=== PATIENT | female | born 1985 | race Caucasian/White ===

== ENCOUNTER 2018-01-02 17:51 | Inpatient (IN) ==
[2018-01-02] MEDS ORDERED: Sodium Chlor 0.9% Inj 500 ML IV.SIG PRN (18:34)
[2018-01-02] MEDS ORDERED: fentaNYL Citrate Inj 100 MCG/2 ML Ampul IV.PUSH PRN ×2 (18:34)
[2018-01-02] MEDS ORDERED: Oxytocin 30 Units/500ml Premix 30 UNITS/500 ML BAG IV.SIG ONE (18:34)
[2018-01-02] MEDS ORDERED: Naloxone Inj 0.4 MG/ML Vial IV.PUSH PRN (18:34)
[2018-01-02] MEDS ORDERED: Sod Chloride 0.9% Inj 1,000 ML IV.CONT PRN (18:34)
[2018-01-02] MEDS ORDERED: Oxytocin 30 Units/500ml Premix 30 UNITS/500 ML BAG IV.CONT PRN (18:35)
--- NOTE | 2018-01-02 18:41 | ED ---
History of Present Illness Primary Care Physician: Lewis Park Chief Complaint: Complaints of leakage of fluid History of Present Illness: 32-year-old at 40 weeks 4 days gestation complains of leakage of fluid this a.m. care with Dr. Park uneventful to date. History of Masha's with adjustment in meds throughout the . GBS negative Weeks Gestation:: 40 Para: 0 : 2 - Inpatient Certification I certify that the inpatient services were ordered in accordance with Medicare regulations governing the order. This includes certification that hospital inpatient services are reasonable and necessary and in the case of services not specified as inpatient-only under 42 CFR 419.22(n), that they are appropriately provided as inpatient services in accordance to with the 2-midnight benchmark under 43 CFR 412.3(e) Estimated Total Length of Stay (Days): 2 Plans for Post Hospital Care: Home Review of Systems All other systems reviewed negative except as stated in HPI PMFSH - History History Provided By: Patient - Medical History Medical History: Medical History (Last Updated 01/02/18 @ 18:38 by Aida Sorto MD) Masha's thyroiditis - Surgical History Surgical History: Surgical History (Last Updated 01/02/18 @ 18:38 by Aida Sorto MD) History of incision and drainage Medications and Allergies Allergies Allergy/AdvReac Type Severity Reaction Status Date / Time ciprofloxacin [From Cipro] Allergy Shakiness Verified 09/21/17 19:03 Latex, Natural Rubber Allergy Hives Verified 09/21/17 19:03 Exam Narrative: GENERAL: Well-nourished, well-developed patient. SKIN: Warm and dry. HEAD: Normocephalic and atraumatic. EYES: No scleral icterus. No injection or drainage. ENT: No nasal drainage noted. Mucous membranes pink. Airway patent. NECK: Supple, trachea midline. No JVD. CARDIOVASCULAR: Regular rate and rhythm without murmurs, gallops, or rubs. RESPIRATORY: Breath sounds equal bilaterally. No accessory muscle use. BREASTS: Bilateral exam showed no masses , no retractions, no nipple discharge. ABDOMEN/GI: Abdomen soft, non-tender, bowel sounds present, no rebound, no guarding Gravid to 40 weeks size Fundal Height: Consistent with gestational age GENITOURINARY: External Genitalia: intact and normal in appearance BUS glands: Unremarkable Cervix: Soft Dilatation: 1 Effacement: 90 Station: -2 -3 Presentation: Vertex Membranes: Grossly ruptured clear fluid Uterine Contractions: Absent FHT's: Category: 1 EXTREMITIES: No cyanosis or edema. BACK: Nontender without obvious deformity. No CVA tenderness. NEUROLOGICAL: Awake and alert. Motor and sensory grossly within normal limits. Normal speech. Assessment and Plan - Diagnosis (1) 40 weeks gestation of Code(s): Z3A.40 - 40 weeks gestation of Status: Acute (2) Leakage, amniotic fluid Code(s): O42.90 - Premature rupture of membranes, unspecified as to length of time between rupture and onset of labor, unspecified weeks of gestation Status : Acute - Plan Discussed with Dr. Park plan admit and start oxytocin. Patient aware plan of care Discharge Plan - Discharge Disposition Patient Disposition: 30 Still Patient - Physicians Team ED Provider: Aida Sorto Primary Care Provider: NOT REQUIRED,
[2018-01-02] MEDS ORDERED: Citric Acid/Sodium Citrate Liq 30 ML UDC PO SCH (18:45)
[2018-01-02 20:04] LABS: Baso % (Auto) 0.2 % (0.0-2.0); Bilirubin,Urine Negative (Negative); Clarity,Urine Hazy (Clear); Color,Urine Yellow (Yellw/Straw); Eos # (Auto) 0.1 th/mm3 (0.0-0.4); Eos % (Auto) 0.8 % (0.0-4.0); Glucose,Urine (UA) Negative (Negative); Hematocrit 30.2 % (35.0-46.0); Hemoglobin 10.2 gm/dL (11.6-15.3); Leukocyte Esterase,Urine Negative (Negative); Lymph # (Auto) 1.9 th/mm3 (1.0-4.8); Lymph % (Auto) 16.9 % (9.0-44.0); Mean Corpuscular HGB Conc 33.8 % (32.0-36.0); Mean Corpuscular Hemoglobin 27.7 pg (27.0-34.0); Mean Corpuscular Volume 81.8 fL (80.0-100.0); Mean Platelet Volume 9.2 fL (7.0-11.0); Mono # (Auto) 0.8 th/mm3 (0.0-0.9); Mono % (Auto) 6.7 % (0.0-8.0); Neut # (Auto) 8.5 th/mm3 (1.8-7.7); Neut % (Auto) 75.4 % (16.0-70.0); Nitrite,Urine Negative (Negative); Platelet Count 181 th/mm3 (150-450); Specific Gravity,Urine 1.008 (1.002-1.035); Squamous Epithelial Cell,Urine <1 /hpf (0-5); White Blood Count 11.2 th/mm3 (4.0-11.0)
[2018-01-02 20:09] LABS: Amphetamine Urine With Conf Neg (Neg); Benzodiazepine Urine With Conf Neg (Neg)
[2018-01-03] MEDS ORDERED: fentaNYL 2MCG-Bupiv 0.125% Epi 150 ML EPIDURAL ONE (00:34)
[2018-01-03] MEDS ORDERED: Lidocaaine 1.5%/Epinephrine 1:200,000 PF Inj 5 ML Amp ONE (00:37)
[2018-01-03] MEDS ORDERED: Lidocaine PF 1% Inj 5 ML Vial ONE (00:38)
[2018-01-03] MEDS ORDERED: fentaNYL Citrate Inj 100 MCG/2 ML Ampul EPIDURAL ONE (01:29)
[2018-01-03] MEDS ORDERED: fentaNYL 2MCG-Bupiv 0.125% Epi 150 ML EPIDURAL PRN (01:29)
[2018-01-03] MEDS ORDERED: Naloxone Inj 0.4 MG/ML Vial IV.PUSH PRN (06:30)
[2018-01-03] MEDS ORDERED: Oxytocin 30 Units/500ml Premix 30 UNITS/500 ML BAG IV.CONT PRN (06:30)
[2018-01-03] MEDS ORDERED: Zolpidem Tartrate 5 MG Tablet PO PRN (06:30)
[2018-01-03] MEDS ORDERED: Acetaminophen 325 MG Tablet PO PRN (06:30)
[2018-01-03] MEDS ORDERED: Witch Hazel 50%/Glyderin 12.5% 40 Pad Jar RECTAL PRN (06:30)
[2018-01-03] MEDS ORDERED: Bisacodyl 10 MG Supp RECTAL PRN (06:30)
[2018-01-03] MEDS ORDERED: Benzocaine 20% Top Spray 60 ML Can TOPICAL PRN (06:30)
--- NOTE | 2018-01-03 06:33 | P.OBDELI ---
Weeks Gestation: 40 Patient Started Active Labor: Yes (16:30) Active Labor Start Date: 01/02/18 Active Labor Start Time: 16:30 Medical Induction of Labor: No Artificial Rupture of Membrane: No Anesthesia: Epidural Episiotomy: none Vaginal Delivery: Normal, Spontaneous Presentation: Occiput anterior Nuchal Cord: None Delayed Cord Clamping (45 sec): Yes Laceration: Vaginal, 2 deg Repair: Chromic running Infant: Male, Single ( 9/9 weight 8# 13 oz)
[2018-01-03] MEDS: Levothyroxine 125 MCG Tablet PO SCH (08:02)
[2018-01-03] MEDS: Senna/Docusate Sodium 8.6/50 MG Tablet PO SCH ×2 (09:29→20:32)
[2018-01-03] MEDS ORDERED: Measles/Mumps/Rubella Vaccine Inj 0.5 ML Vial SQ ONE (16:00)
[2018-01-03] MEDS ORDERED: Diphtheria/Tetanus/Pertussis Vaccine Inj 0.5 ML Syringe IM ONE (16:00)
[2018-01-04] MEDS: Levothyroxine 125 MCG Tablet PO SCH (05:42)
--- NOTE | 2018-01-04 07:20 | P.PNOB ---
Subjective Post day: 1 Interval history: doing well, PPD #1 slight pain at perineum Objective Vital Signs/I&O: Vital Signs 01/03/18 07:30 01/03/18 09:00 01/03/18 20:00 Temperature 98.0 F 98.3 F Pulse Rate 86 72 82 Respiratory Rate 20 18 Blood Pressure 125/79 132/77 135/77 Result Diagrams: 01/02/18 19:00 Objective Remarks: GENERAL: Well-nourished, well-developed patient. ABDOMEN/GI: Abdomen soft, non-tender. Fundus: Firm, non-tender at umbilicus. GENITOURINARY: Light to moderate bleeding. EXTREMITIES: No cyanosis or edema, non-tender, without signs of DVT. Medications and IVs: Active Medications Acetaminophen (Tylenol) 650 mg PO Q4H PRN PRN Reason: PAIN SCALE 1 TO 2 Last Admin: 01/03/18 20:32 Dose: 650 mg Al Hydroxide/Mg Hydroxide (Milk Of Magnesia Liq) 30 ml PO Q12H PRN PRN Reason: Mild Constipation Benzocaine (Americaine 20% [place]) 1 spray TOPICAL Q4H PRN PRN Reason: For Perineum Discomfort Last Admin: 01/03/18 20:33 Dose: 1 spray Bisacodyl (Dulcolax Supp) 10 mg RECTAL DAILY PRN PRN Reason: SEVERE CONSITIPATION Oxytocin (Pitocin 30 Units/Ns 500 Ml Premix) 30 units in 500 mls @ 2 mls/hr IV.CONT TITRATE PRN; Protocol PRN Reason: For induction of labor Last Admin: 01/02/18 20:00 Dose: 2 milliunit/min, 2 mls/hr Fentanyl/Bupivacaine/Sodium Chlor (Fentanyl 2 Mcg-Bupiv 0.125% Epi) 150 mls @ 13 mls/hr EPIDURAL PRN PRN PRN Reason: for Labor Pain Last Admin: 01/03/18 07:42 Dose: 13 mls/hr Oxytocin (Pitocin 30 Units/Ns 500 Ml Premix) 30 units in 500 mls @ 100 mls/hr IV.CONT UNSCH PRN PRN Reason: Heavy bleeding Ibuprofen (Motrin) 800 mg PO Q8H PRN PRN Reason: For Cramping Last Admin: 01/04/18 02:30 Dose: 800 mg Lactulose (Lactulose Liq) 30 ml PO DAILY PRN PRN Reason: SEVERE CONSITIPATION Levothyroxine Sodium (Synthroid) 125 mcg PO DAILY@0600 [facility] Last Admin: 01/04/18 05:42 Dose: 125 mcg Naloxone HCl (Narcan Inj) 0.1 mg IV.PUSH Q2M PRN PRN Reason: for opiate reversal Ondansetron HCl (Zofran Odt) 4 mg PO Q6H PRN PRN Reason: NAUSEA OR VOMITING Oxycodone/Acetaminophen (Percocet 5/325 Mg) 1 tab PO Q4H PRN PRN Reason: PAIN SCALE 3 TO 5 Last Admin: 01/04/18 02:30 Dose: 1 tab Oxycodone/Acetaminophen (Percocet 5/325 Mg) 2 tab PO Q4H PRN PRN Reason: PAIN SCALE 6 TO 10 Senna/Docusate Sodium (Raissa-Colace) 1 tab PO BID [facility] Last Admin: 01/03/18 20:32 Dose: 1 tab Sennosides (Senokot) 17.2 mg PO Q12H PRN PRN Reason: Moderate Constipation Sodium Chloride (Ns Flush) 2 ml IV.FLUSH BID [facility] Last Admin: 01/04/18 04:21 Dose: Not Given Sodium Chloride (Ns Flush) 2 ml IV.FLUSH PRN PRN PRN Reason: FLUSH AFTER USING IV ACCESS Witch Mavis/Glycerin (Tucks Pads) 1 applicatio RECTAL QID PRN PRN Reason: HEMORRHOIDS Last Admin: 01/03/18 20:33 Dose: 1 applicatio Zolpidem Tartrate (Ambien) 5 mg PO HS PRN PRN Reason: SLEEP Assessment and Plan - Diagnosis (1) (spontaneous vaginal delivery) Code(s): O80 - Encounter for full-term uncomplicated delivery Status: Acute - Plan dc home
--- NOTE | 2018-01-04 07:28 | P.DS ---
Date of admission: 01/02/18 18:33 Primary care physician: NOT REQUIRED Brief History from admission: patient came for SROM at term DS: Diagnosis - Discharge Diagnosis (1) (spontaneous vaginal delivery) Status: Acute DS: Medications - Discharge Medications Prescriptions: oxycodone-acetaminophen 2 tab PO Q4H PRN 3 Days #20 tab PRN Reason: Pain Scale 6 To 10 DS: Summary Hospital Course: BANDAR stayed for 24 hours. she is doing well - Time Spent with Patient Total time spent providing and/or coordinating discharge services: Less than 30 minutes Exam Vital signs: Vital Signs 01/03/18 07:30 01/03/18 09:00 01/03/18 20:00 Temperature 98.0 F 98.3 F Pulse Rate 86 72 82 Respiratory Rate 20 18 Blood Pressure 125/79 132/77 135/77 - Constitutional no acute distress - Routine HEENT Exam Head: Present: normocephalic - Routine Neck Exam Present: full ROM - Routine Respiratory Exam Present: CTA bilaterally - Routine Cardiovascular Exam Present: RRR - Routine Abdominal Exam Present: soft, normoactive bowel sounds - Routine Skin Exam Present: intact - Routine Neurological Exam Present: oriented X3 Results Procedures completed during hospitalization: Discharge Plan - Discharge Disposition Patient Disposition: 01 Discharge Home - Discharge Condition Condition: Good - Discharge Order Discharge Orders: Discharge Order (Routine); Ordered 01/04/18 Ordered By: Luis Park - Physicians Team Primary Care Provider: NOT REQUIRED, Attending Provider: Luis Park
[2018-01-04] MEDS: Senna/Docusate Sodium 8.6/50 MG Tablet PO SCH (08:45)
== END 2018-01-04 15:32 | disposition home or self-care (01) ==
LOC: HOBED 17:51 → H2E 18:33 → H1EA 01-03 08:10
PROVIDERS: ADMIT Obstetrics & Gynecology; ATTEND Obstetrics & Gynecology